=== PATIENT | male | born 1960 | race Caucasian/White ===

== ENCOUNTER 2023-04-02 09:54 | Emergency (ER) | payer OTHER ==
--- NOTE | 2023-04-02 10:37 | ED ---
General Adult HPI - General Chief complaint: Recheck/Abnormal Lab/Rx Stated complaint: HTN Time Seen by Provider: 04/02/23 10:09 Source: patient Mode of arrival: ambulatory Limitations: no limitations - History of Present Illness Initial comments: Dictation was produced using [email or web address] dictation software. please excuse any grammatical, word or spelling errors. Chief Complaint: 63-year-old male told by his cardiology come to the ER for elevated blood pressure History of Present Illness: 63-year-old male 7 weeks ago he had a urgent co ronary artery bypass procedure performed at outside hospital. Patient lives locally however most of his care is done in a different city. He was seen by his perfect bind machine operator recently for elevated blood pressure. He had some of his blood pressure medications rearranged. He is instructed to come to the ER if his blood pressure did not improve. Patient has a headache since 6:00 AM today. States that it's mild. He does have a history of headaches. He feels rather like a usual migraine at slightly different and location. Denies chest pain. No shortness of breath. No neurologic complaints. The ROS documented in this emergency department record has been reviewed and confirmed by me. Those systems with pertinent positive or negative responses have been documented in the HPI. All other systems are other negative and/or noncontributory. - Related Data Home Medications Medication Instructions Recorded Confirmed Acetaminophen Tab [Tylenol Tab] 1,000 mg PO BID 04/02/23 04/02/23 Clopidogrel [Plavix] 75 mg PO DAILY 04/02/23 04/02/23 Gabapentin [Neurontin] 100 mg PO BID 04/02/23 04/02/23 Metoprolol Tartrate 25 mg PO BID 04/02/23 04/02/23 Omeprazole [PriLOSEC] 20 mg PO DAILY 04/02/23 04/02/23 Rosuvastatin [Crestor] 20 mg PO DAILY 04/02/23 04/02/23 Allergies Allergy/AdvReac Type Severity Reaction Status Date / Time No Known Allergies Allergy Verified 04/02/23 11:53 Review of Systems ROS Statement: Those systems with pertinent positive or pertinent negative responses have been documented in the HPI. ROS Other: All systems not noted in ROS Statement are negative. Past Medical History Past Medical History: Hyperlipidemia, Hypertension History of Any Multi-Drug Resistant Organisms: None Reported Past Surgical History: No Surgical Hx Reported Past Psychological History: No Psychological Hx Reported Past Alcohol Use History: None Reported Past Drug Use History: None Reported General Exam - General Exam Comments Initial Comments: PHYSICAL EXAM: General Impression: Alert and oriented x3, not in acute distress HEENT: Normocephalic atraumatic, extra-ocular movements intact, pupils equal and reactive to light bilaterally, mucous membranes moist. Cardiovascular: Heart regular rate and rhythm Chest: Able to complete full sentences, no retractions, no tachypnea Abdomen: abdomen soft, non-tender, non-distended, no organomegaly Musculoskeletal: Pulses present and equal in all extremities, no peripheral edema Motor: no focal deficits noted Neurological: CN II-XII grossly intact, no focal motor or sensory deficits noted Skin: Intact with no visualized rashes Psych: Normal affect and mood Limitations: no limitations Course Vital Signs 04/02/23 04/02/23 04/02/23 09:55 10:40 12:41 Temperature 97.6 F 97.8 F Pulse Rate 62 58 L 61 Respiratory 16 19 18 Rate Blood Pressure 196/91 172/84 164/92 O2 Sat by Pulse 97 96 96 Oximetry Medical Decision Making - Medical Decision Making Was pt. sent in by a medical professional or institution (, PA, PLEAT PATTERNMAKER, urgent care, hospital, or [facility]...) When possible be specific @ -Patient instructed by a cardiology physician bilingual teacher assistant come to the ER should his blood pressure not improve Did you speak to anyone other than the patient for history (EMS, parent, family, police, friend...)? What history was obtained from this source @ -No Did you review nursing and triage notes (agree or disagree)? Why? @ -I reviewed and agree with nursing and triage notes Were old charts reviewed (outside hosp., previous admission, EMS record, old EKG, old radiological studies, urgent care reports/EKG's, [facility] records)? Report findings @ -No old charts were reviewed Differential Diagnosis (chest pain, altered mental status, abdominal pain women, abdominal pain men, vaginal bleeding, musculoskeletal, weakness, fever, dyspnea, syncope, headache, dizziness, GI bleed, back pain, seizure, CVA, palpatations, mental health)? @ -Differential Headache: Migraine, tension, cluster, carbon monoxide, central venous thrombosis, pension karma temporal arteritis, acute closure glaucoma, intercranial hemorrhage, mastoiditis, sinusitis, head injury, this is not meant to be an all-inclusive li st. EKG interpreted by me (3pts min.). @ -None done X-rays interpreted by me (1pt min.). @ -None done CT interpreted by me (1pt min.). @ -Computed tomography scan of head and C-spine shows no acute processes. U/S interpreted by me (1pt. min.). @ -None done What testing was considered but not performed or refused? (CT, X-rays, U/S, labs)? Why? @ -None What meds were considered but not given or refused? Why? @ -None Did you discuss the management of the patient with other professionals (professionals i.e. , PA, PLEAT PATTERNMAKER, lab, RT, psych nurse, social media developer, stereo equipment salesperson, teacher, radiation officer, medical case worker)? Give summary @ -No Was smoking cessation discussed for >3mins.? @ -No Was critical care preformed (if so, how long)? @ -No Were there social determinants of health that impacted care today? How? (Homelessness, low income, unemployed, alcoholism, drug addiction, transportation, low edu. Level, literacy, decrease access to med. care, intermediate, rehab)? @ -No Was there de-escalation of care discussed even if they declined (Discuss DNR or withdrawal of care, Hospice)? DNR status @ -No What co-morbidities impacted this encounter? (DM, HTN, Smoking, COPD, CAD, Cancer, CVA, ARF, Chemo, Hep., AIDS, mental health diagnosis, sleep apnea, morbid obesity)? @ -None Was patient admitted / discharged? Hospital course, mention meds given and route, prescriptions, significant lab abnormalities, going to OR and other pertinent info. @ -63-year-old male presents to the ER for asymptomatic hypertension. Vital signs upon arrival shows blood pressure 196/91. Blood pressure was trending the emergency Department with levels of 164/92. Imaging studies negative. Patient related bedside 12:45 PM with stable medical condition. Multiple times for me to contact patient's cardiology team. They did not return the call. Considering the patient is asymptomatic with elevated blood pressures he is cleared for discharge she is told to contact his cardiology team today he will likely need blood pressure medication adjustments. Undiagnosed new problem with uncertain prognosis? @ -No Drug Therapy requiring intensive monitoring for toxicity (Heparin, Nitro, Insulin, Cardizem)? @ -No Were any procedures done? @ -No Diagnosis/symptom? Acute, or Chronic, or Acute on Chronic? Uncomplicated (without systemic symptoms) or Complicated (systemic symptoms)? @ -Asymptomatic hypertension Side effects of treatment? @ -No Exacerbation, Progression, or Severe Exacerbation? @ -No Poses a threat to life or bodily function? How? (Chest pain, [place], [place], pneumonia, PE, COPD, DKA, ARF, appy, cholecystitis, CVA, Diverticulitis, Homicidal, Suicidal, threat to staff... and all critical care pts) @ -No - Lab Data Result diagrams: 04/02/23 10:12 04/02/23 10:12 Lab Results 04/02/23 04/02/23 04/02/23 Range/Units 10:12 10:12 10:12 WBC 10.1 (3.8-10.6) k/uL RBC 5.48 (4.30-5.90) m/uL Hgb 15.5 (13.0-17.5) gm/dL Hct 48.2 (39.0-53.0) % MCV 88.0 (80.0-100.0) fL MCH 28.2 (25.0-35.0) pg MCHC 32.1 (31.0-37.0) g/dL RDW 14.0 (11.5-15.5) % Plt Count 343 (150-450) k/uL MPV 7.4 Neutrophils % 72 % Lymphocytes % 15 % Monocytes % 7 % Eosinophils % 4 % Basophils % 0 % Neutrophils # 7.2 (1.3-7.7) k/uL Lymphocytes # 1.5 (1.0-4.8) k/uL Monocytes # 0.7 (0-1.0) k/uL Eosinophils # 0.4 (0-0.7) k/uL Basophils # 0.0 (0-0.2) k/uL Sodium 143 (137-145) mmol/L Potassium 5.4 H (3.5-5.1) mmol/L Chloride 103 (98-107) mmol/L Carbon Dioxide 31 H (22-30) mmol/L Anion Gap 9 mmol/L BUN 11 (9-20) mg/dL Creatinine 0.82 (0.66-1.25) mg/dL Est GFR (CKD-EPI)AfAm >90 (>60 ml/min/1.73 sqM) Est GFR (CKD-EPI)NonAf >90 (>60 ml/min/1.73 sqM) Glucose 107 H (74-99) mg/dL Calcium 9.9 (8.4-10.2) mg/dL Troponin I <0.012 (0.000-0.034) ng/mL Disposition Clinical Impression: Hypertension Disposition: HOME SELF-CARE Condition: Good Instructions (If sedation given, give patient instructions): Hypertension (ED) Is patient prescribed a controlled substance at d/c from ED?: No Referrals: Anny Noe MD [Primary Care Provider] - 1-2 days Time of Disposition: 12:47
[2023-04-02 11:01] LABS: Basophils % (A) 0 %; Eosinophils # (A) 0.4 k/uL (0-0.7); Eosinophils % (A) 4 %; HCT 48.2 % (39.0-53.0); HGB 15.5 gm/dL (13.0-17.5); Lymphocytes # (A) 1.5 k/uL (1.0-4.8); Lymphocytes % (A) 15 %; MCH 28.2 pg (25.0-35.0); MCHC 32.1 g/dL (31.0-37.0); Mean Platelet Volume 7.4; Monocytes # (A) 0.7 k/uL (0-1.0); Monocytes % (A) 7 %; Neutrophils # (A) 7.2 k/uL (1.3-7.7); Neutrophils % (A) 72 %; Platelet Count 343 k/uL (150-450); RBC 5.48 m/uL (4.30-5.90); WBC 10.1 k/uL (3.8-10.6)
[2023-04-02 11:14] LABS: African American GFR (CKD) >90 (>60 ml/min/1.73 sqM); Anion Gap 9 mmol/L; Blood Urea Nitrogen 11 mg/dL (9-20); Calcium 9.9 mg/dL (8.4-10.2); Carbon Dioxide 31 mmol/L (22-30); Chloride 103 mmol/L (98-107); Glucose 107 mg/dL (74-99); Non-African American GFR(CKD) >90 (>60 ml/min/1.73 sqM); Potassium 5.4 mmol/L (3.5-5.1); Sodium 143 mmol/L (137-145)
--- NOTE | 2023-04-02 11:37 | CT ---
EXAMINATION TYPE: CT brain wo con DATE OF EXAM: 04/02/2023 COMPARISON: None HISTORY: 63-year-old male Headache. History of HTN. Triple bypass was done 7 weeks ago TECHNIQUE: Examination was done in axial plane without intravenous contrast. Coronal and sagittal r econstructions performed. CT DLP: 1130.4 mGycm Automated exposure control for dose reduction was used. FINDINGS: There is no evidence of acute intracranial hemorrhage, acute ischemic changes, mass, mass-effect, or extra-axial fluid collection. There is no effacement of cerebral sulci or basal subarachnoid cister ns. There is no hydrocephalus. There is no midline shift. Hargrove-white matter distinction is preserv ed. Partially empty sella incidentally noted. Paranasal sinuses and mastoid air cells well pneumatized with mild mucosal thickening maxillary sinus es. Rightward nasal septal deviation. Cerumen within the left external auditory canal. Orbits and noris bes are intact. IMPRESSION: No acute intracranial abnormality seen.
[2023-04-02 12:50] VITALS: BP 164/92; PULSE 61; RESP 18; TEMP 97.8
== END 2023-04-02 12:55 | disposition home or self-care (01) ==
LOC: EC 09:54
DX: I10 Essential (primary) hypertension (principal); E78.5 Hyperlipidemia, unspecified; Z79.899 Other long term (current) drug therapy; Z95.1 Presence of aortocoronary bypass graft
CPT/HCPCS: 36415; 70450; 80048; 84484; 85025; 93005; 99284

== ENCOUNTER 2025-01-08 20:02 | Emergency (ER) | payer MEDICARE, OTHER ==
[2025-01-08 20:08] VITALS: BP 151/68; PULSE 79; RESP 18; TEMP 98.2
--- NOTE | 2025-01-08 20:36 | XR ---
EXAMINATION TYPE: XR chest 2V DATE OF EXAM: 01/08/2025 8:29 PM COMPARISON: None. CLINICAL INDICATION: Male, 64 years old with history of cough; [facility] TECHNIQUE: XR chest 2V Frontal and lateral views of the chest. FINDINGS: Lungs/Pleura: There is no evidence of pleural effusion, focal consolidation, or pneumothorax. Pulmonary vascularity: Unremarkable. Heart/mediastinum: Cardiomediastinal silhouette is unremarkable. Median sternotomy wires and postope rative changes suggesting previous CABG. Musculoskeletal: No acute osseous pathology. Other findings: None IMPRESSION: No acute cardiopulmonary disease/process. [facility], , 01/08/2025 8:34 PM
[2025-01-08 21:22] LABS: RSV Not Detected (Not Detectd)
--- NOTE | 2025-01-08 22:59 | ED ---
URI HPI - General Chief Complaint: Upper Respiratory Infection Stated Complaint: Throat Swelling, R Ear Pain Time Seen by Provider: 01/08/25 20:10 Source: patient, RN notes reviewed Mode of arrival: ambulatory Limitations: no limitations - History of Present Illness Initial Comments: 64-year-old male presents emergency room complaint of right sided throat pain, right ear pain. He states that increasing congestion, phlegm buildup. Patient has a slight cough states is very painful to swallow no extensive difficulty in swallowing no shortness of breath denies fevers or chills. - Related Data Home Medications Medication Instructions Recorded Confirmed Acetaminophen Tab [Tylenol Tab] 1,000 mg PO BID 04/02/23 04/02/23 Clopidogrel [Plavix] 75 mg PO DAILY 04/02/23 04/02/23 Gabapentin [Neurontin] 100 mg PO BID 04/02/23 04/02/23 Metoprolol Tartrate 25 mg PO BID 04/02/23 04/02/23 Omeprazole [PriLOSEC] 20 mg PO DAILY 04/02/23 04/02/23 Rosuvastatin [Crestor] 20 mg PO DAILY 04/02/23 04/02/23 Previous Rx's Medication Instructions Recorded Amoxic-Pot Clav 875-125Mg 1 tab PO Q12HR #20 tab 01/09/25 [Augmentin 875-125] Allergies Allergy/AdvReac Type Severity Reaction Status Date / Time No Known Allergies Allergy Verified 01/08/25 20:08 Review of Systems ROS Statement: Those systems with pertinent positive or pertinent negative responses have been documented in the HPI. ROS Other: All systems not noted in ROS Statement are negative. Past Medical History Past Medical History: Hyperlipidemia, Hypertension History of Any Multi-Drug Resistant Organisms: None Reported Past Surgical History: No Surgical Hx Reported Additional Past Surgical History / Comment(s): triple bypass 2022 Past Psychological History: No Psychological Hx Reported Smoking Status: Former smoker Past Alcohol Use History: Rare Past Drug Use History: None Reported General Exam Limitations: no limitations General appearance: alert, in no apparent distress Head exam: Present: atraumatic, normocephalic, normal inspection Eye exam: Present: normal appearance, PERRL, EOMI. Absent: scleral icterus, conjunctival injection, periorbital swelling ENT exam: Present: mucous membranes moist, TM's normal bilaterally, normal external ear exam. Absent: normal exam, normal oropharynx (Right-sided tonsillar swelling noted) Neck exam: Present: normal inspection, full ROM, lymphadenopathy. Absent: tenderness, meningismus Respiratory exam: Present: normal lung sounds bilaterally. Absent: respiratory distress, wheezes, rales, rhonchi, stridor Cardiovascular Exam: Present: regular rate, normal rhythm, normal heart sounds. Absent: systolic murmur, diastolic murmur, rubs, gallop, clicks Course Vital Signs 01/08/25 20:03 Temperature 98.2 F Pulse Rate 79 Respiratory 18 Rate Blood Pressure 151/68 O2 Sat by Pulse 98 Oximetry Medical Decision Making - Medical Decision Making Was pt. sent in by a medical professional or institution (, PA, DEHYDRATOR, urgent care, hospital, or snf...) When possible be specific @ -No Did you speak to anyone other than the patient for history (EMS, parent, family, police, friend...)? What history was obtained from this source @ -No Did you review nursing and triage notes (agree or disagree)? Why? @ -I reviewed and agree with nursing and triage notes Were old charts reviewed (outside hosp., previous admission, EMS record, old EKG, old radiological studies, urgent care reports/EKG's, snf records)? Report findings @ -No old charts were reviewed Differential Diagnosis (chest pain, altered mental status, abdominal pain women, abdominal pain men, vaginal bleeding, weakness, fever, dyspnea, syncope, headache, dizziness, GI bleed, back pain, seizure, CVA, palpatations, mental health, musculoskeletal)? @ -Tonsillitis strep pharyngitis, tonsillar abscess peritonsillar abscess EKG interpreted by me (3pts min.). @ -None none X-rays interpreted by me (1pt min.). @ -Chest x-ray shows no acute cardiopulmonary process CT interpreted by me (1pt min.). @ -CT soft tissue neck showing evidence of tonsillar abscess, no air airway obstruction this read was not dictated by radiologist prior to patient leaving against medical vice U/S interpreted by me (1pt. min.). @ -None done What testing was considered but not performed or refused? (CT, X-rays, U/S, labs)? Why? @ -None What meds were considered but not given or refused? Why? @ -None Did you discuss the management of the patient with other professionals (professionals i.e. , PA, DEHYDRATOR, lab, RT, psych nurse, social work faculty member, purler, teacher, ground intelligence officer, corrections caseworker)? Give summary @ -No Was smoking cessation discussed for >3mins.? @ -No Was critical care preformed (if so, how long)? @ -No Were there social determinants of health that impacted care today? How? (Homelessness, low income, unemployed, alcoholism, drug addiction, satfford sportation, low edu. Level, literacy, decrease access to med. care, custodial, rehab)? @ -No Was there de-escalation of care discussed even if they declined (Discuss DNR or withdrawal of care, Hospice)? DNR status @ -No What co-morbidities impacted this encounter? (DM, HTN, Smoking, COPD, CAD, Cancer, CVA, ARF, Chemo, Hep., AIDS, mental health diagnosis, sleep apnea, morbid obesity)? @ -None Was patient admitted / discharged? Hospital course, mention meds given and route, prescriptions, significant lab abnormalities, going to OR and other pertinent info. @ -Patient left AGAINST MEDICAL ADVICE. Patient stated that he was tired of waiting for results. Patient did receive Rocephin, Decadron prior to leaving AGAINST MEDICAL ADVICE. CT was pending to explain there is high concerns for possible peritonsillar, tonsillar abscess and may need for procedure, ENT evaluation. Patient states he understands he request antibiotics and discharge. Undiagnosed new problem with uncertain prognosis? @ -No Drug Therapy requiring intensive monitoring for toxicity (Heparin, Nitro, Insulin, Cardizem)? @ -No Were any procedures done? @ -No Diagnosis/symptom? @ -Tonsillar abscess Acute, or Chronic, or Acute on Chronic? @ -Acute Uncomplicated (without systemic symptoms) or Complicated (systemic symptoms)? @ -Complicated Side effects of treatment? @ -No Exacerbation, Progression, or Severe Exacerbation? @ -No Poses a threat to life or bodily function? How? (Chest pain, [place], [place], pneumonia, PE, COPD, DKA, ARF, appy, cholecystitis, CVA, Diverticulitis, Homicidal, Suicidal, threat to staff... and all critical care pts) @ -Yes sepsis, airway involvement - Lab Data Lab Results 01/08/25 01/08/25 Range/Units 20:09 20:09 Influenza Type A (PCR) Not Detected (Not Detectd) Influenza Type B (PCR) Not Detected (Not Detectd) RSV (PCR) Not Detected (Not Detectd) SARS-CoV-2 (PCR) Not Detected (Not Detectd) Group A Strep (PCR) NOT DETECTED (Not Detectd) Disposition Clinical Impression: Peritonsillar abscess Disposition: LEFT AGAINST MEDICAL ADVICE Condition: Fair Instructions (If sedation given, give patient instructions): Peritonsillar Abscess (ED) Additional Instructions: Please return to the Emergency Department if symptoms worsen or any other concerns. Prescriptions: Amoxic-Pot Clav 875-125Mg [Augmentin 875-125] 1 tab PO Q12HR #20 tab Is patient prescribed a controlled substance at d/c from ED?: No Referrals: Anny Noe MD [Primary Care Provider] - 1-2 days Time of Disposition: 01:25
[2025-01-08] MEDS: LIDOCAINE VISCOUS 2% 15 ML CUP MUCOUS MEM ONE (23:49)
[2025-01-08] MEDS: DEXAMETHASONE SOD PHOSPHATE 10 MG/ML 1 ML VIAL IVP STA (23:50)
--- NOTE | 2025-01-09 01:27 | CT ---
EXAM: CT Neck With Intravenous Contrast CLINICAL HISTORY: ITS.REASON CT Reason: right side pain, swelling TECHNIQUE: Axial computed tomography images of the neck with intravenous contrast. CTDI is 14.2 mGy and DLP is 485.8 mGy-cm. This CT exam was performed using one or more of the following dose reduction techniques: automated exposure control, adjustment of the mA and/or kV according to patient size, and/or use of iterative reconstruction technique. COMPARISON: No relevant prior studies available. FINDINGS: Nasal cavity/septum: Unremarkable. Nasopharynx: Unremarkable. Oropharynx: The right faucial tonsil is enlarged and edematous with rim- enhancing fluid collection measuring 21.3 x 12.1 x 12.1 mm with inflammation adjacent retropharyngeal and parapharyngeal soft tissues. Hypopharynx: There is edema in the right parapharyngeal soft tissues. Larynx: Unremarkable. Normal epiglottis. Trachea: Unremarkable. Retropharyngeal space: Unremarkable. Submandibular/parotid glands: Unremarkable. Glands are normal in size. Thyroid: Unremarkable. No enlarged or calcified nodules. Bones/joints: No acute fracture. Status post median sternotomy. Soft tissues: Unremarkable. Vasculature: No acute findings. Lymph nodes: Prominent cervical lymph nodes. Sinuses: Unremarkable as visualized. No acute sinusitis. Lung apices: Unremarkable as visualized. IMPRESSION: Acute right faucial tonsillitis with intratonsillar abscess and 21.3 x 12. 1 x 12.1 mm. Prominent cervical lymph nodes. <MYCVCSECTION> Communications: 01/09/25 01:34 Verify Receipt Verified receipt with KITTY Chaney giving report to RUSSEL Meneses on 01/09 01:34 (-04:00)
== END 2025-01-09 01:42 | disposition left against medical advice (07) ==
LOC: EC 20:02
DX: J36 Peritonsillar abscess (principal); Z87.891 Personal history of nicotine dependence; Z53.29 Procedure and treatment not carried out because of patient's decision for other reasons
CPT/HCPCS: 87651; 87636; 71046; 70491; 99283; 96365; 96375; J1100; J0696; Q9967